=== PATIENT | female | born 1940 | race Caucasian/White ===

== ENCOUNTER 2018-06-12 09:58 | Inpatient (IN) | payer MEDICARE, OTHER ==
[~2018-06-12] VITALS: Ht 160 cm; Wt 64.6 kg
--- NOTE | ~2018-06-12 | D ---
[facility] [address] [place] [address] DISCHARGE SUMMARY Name: ARIKRAPHAEL Eddi Room: [address] IN M.R.#: [id number] Admission: 06/12/18 Attend Phys: Lou Hodges DO Discharge: 06/25/18 Date of : 44 Report #: [id number] THIS REPORT FOR: //name// CC: Pablito Hodges DISCHARGE DIAGNOSES: Right thalamic cerebrovascular accident. Discharged to home with home health PT, OT and nursing. She will follow with her neurologist within 2-4 weeks and her primary care physician within 1 week. Notifications for physician were given. She will maintain a regular diet as previously stated. Fall precautions and supervision. DISCHARGE PHYSICAL EXAMINATION: GENERAL: Alert, oriented, in no apparent distress. VITAL SIGNS: Reviewed and are stable. HEENT: Head atraumatic, normocephalic. Pupils equal, round, reactive. ABDOMEN: Soft, nontender, nondistended. NEUROLOGIC: Cranial nerves 2 through 12 are grossly intact. By: [id number] Hodges DO /nt
[2018-06-12] MEDS ORDERED: ASPIR 8181 MG PO (14:05)
[2018-06-12] MEDS ORDERED: VITAMINC500 PO (14:05)
[2018-06-12] MEDS ORDERED: TUMS PO (14:06)
[2018-06-12 16:36] VITALS: BP 148/58
[2018-06-12] MEDS ORDERED: ESTRACE1 TUBE VAG (18:36)
[2018-06-12] MEDS ORDERED: EYE DROP15 ML OPHTHALMIC (18:37)
[2018-06-12] MEDS ORDERED: FLUOCINOLON118.28 ML OTIC (18:39)
[2018-06-12] MEDS ORDERED: UNICOMPLEX M TA1 TA1 PO (18:39)
[2018-06-12] MEDS ORDERED: PROBIOTIC1 EAC1 PO (18:40)
[2018-06-12] MEDS ORDERED: OMEGA-31000 M1 PO (18:40)
[2018-06-12] MEDS ORDERED: VITAMIN B-1100 M1 PO (18:41)
--- NOTE | 2018-06-12 18:42 | NUR ---
PATIENT ADMITTED TO UNIT FROM [facility] WITH CVA, LEFT SIDE WEAKNESS, REPORT RECIEVED FROM RUSTY, PATIENT ARRIVED PER W/C VAN, ADMISSION VITALS TAKEN, PATIENT UP WITH ASSIST OF ONE WITH GAIT BELT AND WALKER, NO COMPLAINTS OF PAIN AT THIS POINT BUT DOES HAVE OSTEOARTHRITIS WITH CHRONIC PAIN, ADMISSION ASSESSMENT COMPLETED, ORIENTED TO ROOM AND UNIT, ALL QUESTIONS ANSWERED. CALL LIGHT IN REACH, AND CHAIR ALARM IN PLACE.
[2018-06-12 20:00] VITALS: BP 104/65
[2018-06-13 04:57] LABS: HEMATOCRIT 43.2 % (37.0-47.0); HEMOGLOBIN 14.5 gm/dL (12.0-15.0); MCHC 33.6 g/dL (28.0-37.0); MCV 92.2 fL (80.0-100.0); MPV 8.7 fl. (7.2-11.1); RBC 4.68 mil/uL (4.20-5.00); RDW-CV 13.1 % (10.5-14.5)
--- NOTE | 2018-06-13 05:05 | NUR ---
ASSUMED CARE AT 1929. PATIENT IN RECLINER UNTIL AROUND 2129. S/P CVA WITH LT SIDED WEAKENESS. UP TO VOID PER TOILET, DOES OWN HYGIENE AND CLOTHING ADJUSTMENT. TURNS SELF IN BED EASILY. DID OWN HS CARES. TAKES PILLS WHOLE WITH WATER WITHOUT DIFF. STATES THAT SHE DOES NOT WANT ANY HOSPITAL PROVIDED VAGINAL ESTROGEN CREAM BECAUSE SHE HAS HER OWN AT HOME THAT IS SPECIALLY PREPARED FOR HER. SHE STATES THAT SHE CANNOT USE ANY EYE GTTS THAT HAVE ANY PRESERVATIVES IN THEM, AND THAT THE EAR DROPS ARE NO LONGER NEEDED BECAUSE HER "ECZEMA" HAS CLEARED UP. NO C/O PAIN. HOURLY ROUNDS CONTINUE. BED ALARM ON. CALL LITE IN REACH.
[2018-06-13 05:08] LABS: CALCIUM 9.2 mg/dL (8.5-10.1); CREATININE 0.6 mg/dL (0.6-1.3)
[2018-06-13 08:00] VITALS: BP 148/64
--- NOTE | 2018-06-13 17:50 | NUR ---
SHIFT NOTE - PT DIZZY AT TIMES WITH WALKING. GAIT BELT AND WALKER USED. PT ABLE TO WALK ABOUT 75 FEET. PT USES DETRACTION TO HELP WITH DIZZINESS. PT HAD MULTIPLE FAMILY MEMBERS THIS SHIFT.
[2018-06-13 20:00] VITALS: BP 132/54
--- NOTE | 2018-06-14 05:05 | NUR ---
ASSUMED CARES AT 1920. ALERT AND ORIENTED. PLEASANT. SAYS THAT DOES HAVE DIZZINESS WHEN STANDING UP BUT THEN GOES AWAY. TAKES PILLS WHOLE WITHOUT ISSUES. MIN ASSIST WITH GAIT BELT AND WALKER. UP TO BATHROOM. DOES OWN CARES. SLEPT WELL WITHOUT ANY COMPLAINTS. USING CALL LIGHT APPROPRIATELY. BED ALARM ON.
[2018-06-14 08:00] VITALS: BP 120/90
--- NOTE | 2018-06-14 17:24 | NUR ---
SHIFT NOTE - PT WALKED TO DINING [place] X 2 TODAY FOR LUNCH AND DINNER. PT ALSO WALKED ~160 FEET WITH WALKER AND GAIT BELT. TOLERATED WELL. STATES SHE FEELS LIKE HER LEGS ARE GETTING STRONGER. PT HAD LARGE, FORMED STOOL THIS AM. PT HAS BEEN SITTING UP IN WHEELCHAIR FOR MOST OF SHIFT. FAMILY AT BEDSIDE FOR MOST OF SHIFT. WILL CONTINUE TO MONITOR.
[2018-06-14 19:52] VITALS: BP 137/50
--- NOTE | 2018-06-15 01:11 | NUR ---
ASSUMED CARE @ 1937-06/14-FRIDAY.WASHING HANDS IN SINK -SITTING ON A W/C.PROPELS W/C IND IN ROOM.WEARS JESSICA.HEARING AIDS.BED ALARM PUT ON @ 2126. 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
--- NOTE | 2018-06-15 05:18 | NUR ---
SLEPT GOOD ALL NIGHT & SLEEPING SINCE 2126.REFUSED HS SNACK.BRP PER W/C X2 DURING NIGHT.NO EPISODE OF DIZZINESS DURING NIGHT.SPEECH-MILD SLURRING NOTED.
[2018-06-15 08:46] VITALS: BP 134/43
--- NOTE | 2018-06-15 11:42 | NUR ---
Nutrition: Pt admitted to Rehab s/p CVA. H/o OA, osteoporosis, MATCH-E-BE-NASH-SHE-WISH BAND. RX: MVI, l. acidophilus, fish oil. Heart Healthy diet ordered. +BM. No albumin recorded. POC is pending. Appears nutritionally stable at this time. Will follow weekly.
[2018-06-15 16:49] LABS: ALBUMIN 3.9 g/dL (3.4-5.0); CALCIUM 9.2 mg/dL (8.5-10.1); CREATININE 0.7 mg/dL (0.6-1.3); POTASSIUM 4.2 mmol/L (3.5-5.1); TOTAL BILIRUBIN 0.3 mg/dL (<0.1-1.0); TOTAL PROTEIN 7.7 g/dL (6.4-8.2)
--- NOTE | 2018-06-15 17:46 | NUR ---
ASSUMED CARE OF PATIENT AFTER MORNING REPORT. ALERT AND ORIENTED X4. ASSESSMENT COMPLETED AND CHARTED. VSS ON ROOM AIR. NO COMPLAINTS OF PAIN, NAUSEA, OR SOA. PATIENT WORKING VERY WELL WITH THERAPIES TODAY AND CALLING OUT APPROPRIATELY FOR ASSISTANCE. PATIENT IS UP STAND BY ASSIST AND AMBULATES STEADILY WITH WALKER AND GAIT BELT. PATIENT WENT TO THE DINING ROOM FOR ALL MEALS. HOURLY ROUNDS MAINTAINED, CALL LIGHT WITHIN REACH, NURSING WILL CONTINUE TO MONITOR.
[2018-06-15 20:00] VITALS: BP 120/62
--- NOTE | 2018-06-16 05:46 | NUR ---
ASSUMED CARES AT 1920. ALERT AND ORIENTED. PLEASANT. DENIED ANY PAIN. SAYS THAT ONLY HAS DIZZINESS IF UP WALKING. LIKES TO USE W/C TO GET AROUND IN RM. MIN ASSIST WITH GAIT BELT AND W/C. UP TO BATHROOM. DOES OWN CARES. SLEPT VERY WELL. NO ISSUES. CALL LIGHT IN REACH AND BED ALARM ON.
[2018-06-16 10:15] VITALS: BP 121/71
--- NOTE | 2018-06-16 13:35 | NUR ---
SW met with pt to complete initial assessment, introduce self, and SW role. Pt alert, oriented, pleasant. Pt lives at home with her and also has a supportive family. Pt has RWs, canes, walking stick and pt/pt planning on installing grab bars for the shower. Pt does not have any history of HH or SNF. Pt is [facility]. Pt is current with PCP Dr Rodriguez. SW discussed team conference tomorrow and also discussed informing and updating pt family of choice and pt said possibly her to be called after the meeting. Pt did not have any questions or concerns at this time. SW to continue to follow to assist with safe dc planning.
--- NOTE | 2018-06-16 16:27 | NUR ---
PT IS ALERT AND ORIENTED X 4. DENIES PAIN. UP WITH SBA X 1. USES WHEELCHAIR FOR PRIMARY LOCOMOTION. USES A WALKER AND GAIT BELT FOR AMBULATION. HARD OF HEARING-WEARS HEARING AIDES BILAT. VS STABLE. PARTICIPATED IN THERAPIES DURING SHIFT. @ 1130, NOTIFIED BY THERAPIST OF EPISODE OF FACIAL NUMBNESS WHILE IN THERAPY GYM. DR. OCHOA NOTIFIED. PT DENIED NUMBNESS UPON ASSESSMENT. HOURLY ROUNDS MAINTAINED. WILL USE CALL LIGHT FOR ASSISTANCE. CALL LIGHT WITHIN REACH. NURSING WILL CONTINUE TO MONITOR.
[2018-06-16 20:00] VITALS: BP 140/49
--- NOTE | 2018-06-17 05:03 | NUR ---
ASSUMED PT CARE AT 1930. PT ALERT AND ORIENTED, POLITE AND COOPERATIVE WITH CARES. PT IS [place], WEARS BILATERAL HEARING AIDES. DENIES PAIN. PREFERS TO USE W/C TO GET AROUND IN ROOM. MIN ASSIST WITH GAITBELT AND W/C TO BATHROOM TO VOID X2 OVERNIGHT. PT DOES OWN CARES. SLEPT WELL, NO COMPLAINTS, OR S/S PAIN OR DISTRESS. BED ALARM ON FOR SAFETY. USES CALL LIGHT APPROPRIATELY. CALL LIGHT AND FREQUENTLY USED ITEMS WITHIN REACH. HOURLY ROUNDING IN PROGRESS, WILL CONTINUE TO MONITOR.
[2018-06-17 08:04] VITALS: BP 136/54
--- NOTE | 2018-06-17 14:37 | NUR ---
AM ASSESSMENT AND VITAL SIGNS COMPLETED DOCUMENTED. PT HAS BEEN PLEASANT AND COOPERATIVE, WORKS WITH ALL THERAPIES. BILATERAL HEARING AIDES AND GLASSES WORN THIS SHIFT. PT REQUESTED TO WALK MORE SO I HAVE ENCOURAGED HER TO USE THE WALKER MORE AND WHEELCHAIR LESS. PT C/O RIB PAIN THIS AM AND NOW HAS PRN ICY HOT. FALL PRECAUTIONS AND HOURLY ROUNDING CONTINUE.
--- NOTE | 2018-06-17 15:00 | NUR ---
TAMMY and Dr Hodges met with pt and reviewed team conference summary and plan for pt to remain on rehab unit one more week with possible dc next and pt to be mod I next week. Pt understanding and did not have any questions at this time. SW to continue to follow to assist with safe dc planning.
[2018-06-17 19:56] VITALS: BP 137/45
--- NOTE | 2018-06-18 05:08 | NUR ---
ASSUMED PT CARE AT 1930. PT ALERT AND ORIENTED, POLITE AND COOPERATIVE WITH CARES. PT IS [place], WEARS BILATERAL HEARING AIDES. DENIES PAIN. UP WITH MIN ASSIST, GAIT BELT AND WALKER TO BATHROOM TO VOID OVERNIGHT. PT DOES OWN CARES. SLEPT WELL. BED ALARM ON FOR SAFETY. USES CALL LIGHT APPROPRIATELY. CALL LIGHT AND FREQUENTLY USED ITEMS WITHIN REACH. HOURLY ROUNDING IN PROGRESS, WILL CONTINUE TO MONITOR.
[2018-06-18 08:00] VITALS: BP 106/45
[2018-06-18 08:51] VITALS: BP 106/45
[2018-06-18 19:43] VITALS: BP 156/48
--- NOTE | 2018-06-19 05:21 | NUR ---
ASSUMED PT CARE AT 1930. PT ALERT AND ORIENTED, POLITE AND COOPERATIVE WITH CARES. PT IS [place], WEARS BILATERAL HEARING AIDES. DENIES PAIN. UP WITH MIN ASSIST, GAIT BELT AND WALKER TO VOID OVERNIGHT. PT DOES OWN CARES. SLEPT WELL. BED ALARM ON FOR SAFETY. USES CALL LIGHT APPROPRIATELY. CALL LIGHT AND FREQUENTLY USED ITEMS WITHIN REACH. HOURLY ROUNDING IN PROGRESS, WILL CONTINUE TO MONITOR.
[2018-06-19 07:51] VITALS: BP 150/60
[2018-06-19 20:47] VITALS: BP 132/47
--- NOTE | 2018-06-20 04:47 | NUR ---
PATIENT REMAINS ALERT AND ORIENTED. VERY [place]. WEARS HEARING AIDS. UP TO VOID X3 THIS SHIFT. SLEPT INTERMITTENTLY. CURRENTLY UP IN WHEELCHAIR WASHING UP IN SINK. TRANSFERS WITH ASSIST OF 1 AND GAITBELT. REFUSED SCD'S. CALL LIGHT WITHIN REACH. WILL CONTINUE TO MONITOR.
--- NOTE | 2018-06-20 05:48 | NUR ---
HOURLY ROUNDING COMPLETED
[2018-06-20 07:55] VITALS: BP 145/63
--- NOTE | 2018-06-20 17:46 | NUR ---
ASSUMED CARE AT 0730 PATIENT ALERT/ORIENTED, NO COMPLAINTS OF PAIN THIS SHIFT, WALKS TO DINING ROOM, HOURLY ROUNDING COMPLETED, PARTICIPATED IN ALL THERAPIES, BED/CHAIR ALARMS IN PLACE, CALL LIGHT IN REACH.
[2018-06-20 20:00] VITALS: BP 125/47
--- NOTE | 2018-06-21 06:28 | NUR ---
PATIENT HAS SLEPT WELL THROUGHOUT THE NIGHT WITHOUT ANY ISSUES. VSS ON RA. NO C/O PAIN. MEDICATION GIVEN ORDERED AND CHARTED. PATIENT UP WITH ASSIST X 1 WITH GAITBELT AND WALKER TO THE BATHROOM. PATIENT INSTRUCTED TO USE CALL LIGHT WHEN NEEDING ASSISTANCE. FALL PRECAUTIONS IN PLACE AND HOURLY ROUNDS MADE. WILL CONTINUE WITH PLAN OF CARE AND NURSING TO MONITOR.
[2018-06-21 08:06] VITALS: BP 115/49
--- NOTE | 2018-06-21 17:51 | NUR ---
ASSUMED CARE AT 0730 PATIENT ALERT/ORIENTED, NO COMPLAINTS OF PAIN THIS SHIFT, UP WITH STANDBY ASSIST AND WALKER/GAIT BELT, AMBULATED AROUND FLOOR X3 THIS SHIFT, TO DINING ROOM FOR MEALS, BED/CHAIR ALARMS IN PLACE, CALL LIGHT IN REACH. HOURLY ROUNDING COMPLETED. VISITED WITH FAMILY/FRIENDS THIS SHIFT.
[2018-06-21 20:03] VITALS: BP 135/46
[2018-06-21 21:02] VITALS: BP 135/46
--- NOTE | 2018-06-22 05:18 | NUR ---
ALERT AND ORIENTED X4. UP WITH STAND BY ASSIST, GAIT BELT AND WALKER. DENIES C/O PAIN OR NAUSEA. HARD OF HEARING. CALL LIGHT WITHIN REACH. PROGRESSING TOWARD DISCHARGE GOAL.
[2018-06-22 08:30] VITALS: BP 144/56
--- NOTE | 2018-06-22 14:51 | NUR ---
ASSUMED CARE AT 0730. ALERT ORIENTED PLEASANT COOPERATIVE. HX OF CVA WITHOUT RESIDUAL. TRANSFERS WITH SBA G BELT WALKER AMBULATES TO BR TO VOID ABLE TO DO HYGEINE AND CLOTHING ADJUSTMENTS. FEEDS SELF TAKES MEDS WITHOUT DIFFICULTY. USES CALL LIGHT APPROPRIATELY FOR ASSIST.PARTICIPATING IN THERAPIES. DENIES PAIN OR REQUESTS.
[2018-06-22 20:00] VITALS: BP 133/55
--- NOTE | 2018-06-23 05:43 | NUR ---
ASSUMED CARES AT 1920. ALERT AND ORIENTED. DENIED ANY PAIN. UP IN W/C. C/O GASSINESS. TUMS PRN GIVEN X 2. MIN ASSIST WITH GAIT BELT AND WALKER/WC. UP TO BATHROOM. DOES OWN CARES. SLEPT OFF AND ON. CALL LIGHT IN REACH AND BED ALARM ON.
[2018-06-23 08:00] VITALS: BP 133/65
--- NOTE | 2018-06-23 13:39 | NUR ---
SW attempted to contact pt in preparation for team conference tomorrow. Pt working with ST at the time. Pt did not answer and the phone memory was full so SW was unable to leave a message. SW to continue to follow to assist with safe dc planning. Plan to reteam tomorrow with possibility of pt to dc home on 06/25.
--- NOTE | 2018-06-23 14:05 | NUR ---
ASSUMED CARE AT 0730. ALERT ORIENTED PLEASANT COOPERATIVE. HX OF CVA NO RESIDUAL. TRANSFERS WITH SBA G BELT WALKER AMBULATES TO BR ABLE TO DO HYGEINE AND CLOTHING ADJUSTMENTS. DENIES PAIN OR CONCERNS. PARTICIPATING IN THERAPIES THROUGHOUT THE DAY. USES CALL LIGHT APPROPRIATELY FOR ASSISTANCE. PROPELLS SELF IN ROOM IN W/C. FEEDS SELF AND TAKES MEDS WITHOUT DIFFICULTY.
[2018-06-23 20:42] VITALS: BP 141/48
--- NOTE | 2018-06-24 05:16 | NUR ---
ASSUMED CARES AT 1920. ALERT AND ORIENTED. PLEASANT. MOVING AROUND ROOM IN W/C. OTHERWISE SBA WITH GAIT BELT. UP TO BATHROOM. DOES OWN CARES. C/O BACK PAIN. ICY HOT APPLIED ALONG WITH HEATING PAD. PT SLEPT VERY WELL. CALL LIGHT IN REACH AND BED ALARM ON.
[2018-06-24 08:00] VITALS: BP 117/49
--- NOTE | 2018-06-24 09:11 | NUR ---
AM ASSESSMENT AND VITAL SIGNS COMPLETED DOCUMENTED. PT HAS SHOWERED, DONE AM ADL's AND PUT HER MAKE UP ON. PT SELF PROPELS IN A WHEELCHAIR WHEN IN HER ROOM BUT IS ABLE TO AMBULATE WITH STAFF PRESENT. NO C/O PAIN OR DIZZINESS THIS AM. HOURLY ROUNDING AND FALL PRECAUTIONS IN PLACE.
--- NOTE | 2018-06-24 16:56 | NUR ---
TAMMY and Dr Hodges met with pt and pt to review team conference summary and plan for pt to dc home with tomorrow with HH services to follow. Dr Hodges explained pt can be mod I in her room starting today. Pt and pt in agreement with plan. SW to continue to follow to assist with finalizing safe dc plan.
[2018-06-24 20:00] VITALS: BP 139/45
[2018-06-24 23:13] VITALS: BP 139/45
--- NOTE | 2018-06-25 05:12 | NUR ---
ASSUMED CARES AT 1920. ALERT AND ORIENTED. SAYS THAT WAS ANXIOUS EARLIER ABOUT GOING HOME BUT FEELING BETTER NOW. HEATING PAD FOR BACK. ANAMARIA IN RM. NO UNSAFE BEHAVIORS NOTED. SLEPT WELL. NO COMPLAINTS. CALL LIGHT IN REACH.
[2018-06-25 08:17] VITALS: BP 144/66
[2018-06-25 11:41] VITALS: BP 139/45
--- NOTE | 2018-06-25 11:43 | NUR ---
SW followed up with pt regarding pt dc home today. Pt to dc home with who is providing pt ride home. SW discussed HH options and SW chose [facility]. SW faxed referral and dc orders/med list to [facility] [phone] and fax [phone]. Pt has DME at home already if needed in the future. Pt did not express any dc needs at this time.
--- NOTE | 2018-06-25 15:14 | NUR ---
AM ASSESSMENT AND VITAL SIGNS COMPLETED DOCUMNETED. THERAPY SESSIONS COMPLETED AND DISCHARGE GOALS HAVE BEEN MET. DISCHARGE INSTRUCTIONS PROVIDED TO PATIENT AND HOME HEALTH WILL BE FOLLOWING AFTER DISCHARGE. PT AND HER BELONGINGS TRANSPORTED TO EXIT, DISCHARGED HOME IN STABLE CONDITION.
--- NOTE | 2018-07-08 13:57 | PLAN ---
[address] [address] REHAB UNIT PLAN OF CARE Name: RAPHAEL ELISE Room: [address] IN [facility].#: [id number] Admission: 06/12/18 Attend Phys: Lou Hodges DO Discharge: 06/25/18 Date of : 44 Report #: [id number] THIS REPORT FOR: //name// CC: Pablito Hodges DIAGNOSIS: Cerebrovascular accident with left-sided weakness, numbness, gait and stability and changes and alterations in activities of daily living. This is a 77-year-old right-hand dominant female status post cerebrovascular accident. Previous level of function was independent with activities of daily living. Current level of function is [id number] assistance of 1-2 depending on therapy, activity and time of day. She has needs in physical and occupational therapy as well as speech and language pathology. MEDICAL PROGNOSIS: Good. REHABILITATION PROGNOSIS: Good. Estimated length of stay is 14-18 days with discharge disposition to the home setting where she has supportive family and an accessible house. Physical therapy will see the patient 60-90 minutes per day, 5 days per week, working on upper and lower body strength, balance, coordination, navigation. Occupational therapy will work with the patient 60-90 minutes per day, 5 days work per week, working on upper and lower body strength, balance, coordination, navigation, bathing, dressing, and toileting. Speech language pathology will work with the patient 60-90 minutes per day, 5 days per week, working on memory, expression, social interaction, and that will be 60-90 minutes per day, 5 days per week. This is an overall plan of care, may change from time to time. We will team weekly and make changes to plan of care as needed. <ELECTRONICALLY SIGNED> By: Lou Hodges DO 07/08/18 1357 [id number] Hodges DO /nt
--- NOTE | 2018-07-08 13:57 | H ---
[address] [place] [address] HISTORY AND PHYSICAL Name: RAPHAEL ELISE Room: [address] IN M.R.#: [id number] Admission: 06/12/18 Attend Phys: Lou Hodges DO Discharge: 06/25/18 Date of : 42 Report #: [id number] THIS REPORT FOR: //name// CC: Pablito Hodges DATE OF SERVICE: 06/12/2018 HISTORY OF PRESENT ILLNESS: 77 YEAR OLD RIGHT HAND DOMINANT FEMALE ADMITTED TO INPATIENT REHABILITATION TO FACILITATE [facility] HOME STATUS POST RIGH THALAMIC CVA on 06/06/18. Residual left upper and lower extremity hemiparesis, numbness, gait instability and alterations in activities of daily living. No significant changes since preadmission screening. Previous level of function was modified independent to independent with activities of daily living. Current level of function is minimum to moderate assistance of 1-2 depending on therapy, activity and time of day. Estimated length of stay is 14-16 days depending on therapy, activity and progression. Medications have been reviewed, reconciled and are available in the MAR. Allergies: reviewed PAST MEDICAL HISTORY: aortic ectasia bronchitis anemia hgb: 15.2 asthma a-fib OA HTN Hearing loss TIA NAYAN CAD eczema GERD Medications have been reviewed and are in the MAR. SOCIAL HISTORY: No tobacco, alcohol or illicit drug use. FAMILY HISTORY: heart disease, stroke [address] [place] [address] HISTORY AND PHYSICAL Name: RAPHAEL ELISE Room: [address] IN [facility].#: [id number] Admission: 06/12/18 Attend Phys: Lou Hodges DO Discharge: 06/25/18 Date of : 44 Report #: [id number] REVIEW OF SYSTEMS: A 14-point review of systems is done and is negative except as mentioned in the HPI, specifically no fever, chest pain, shortness of breath, abdominal pain or distention. PHYSICAL EXAMINATION: GENERAL: Alert, oriented, no apparent distress. VITAL SIGNS: Reviewed and are stable. HEAD: Atraumatic, normocephalic. EYES: Pupils equal, round, reactive. ABDOMEN: Soft, nontender, nondistended. NEUROLOGIC: Cranial nerves 2 through 12 are grossly intact with no focal neuro deficits. SKIN: Warm and dry. MUSCULOSKELETAL: No clubbing, cyanosis or edema. ASSESSMENT: 1. Right thalamic CVA 2. Residual L hemiparesis 3. Left sided numbness 4. Impaired gait 5. Alterations in ADLs PLAN: 1. Admission to inpatient rehabilitation to facilitate safe discharge home. 2. PT, OT, speech, language, case management, nursing and HIMS to make evaluation and recommendations. 3. Plan of care is pending and we will team her weekly on Wednesdays. 4. Modifications to plan of care as needed. <ELECTRONICALLY SIGNED> By: Lou Hodges DO 07/08/18 1357 [id number] Hodges DO /milagro
== END 2018-06-25 15:25 | disposition home health service (06) | DRG 65 ==
LOC: M.REH 09:58
PROVIDERS: Internal Medicine; ADMIT Physical Medicine & Rehabilitation
DX: I63.89 Other cerebral infarction (principal); G81.94 Hemiplegia, unspecified affecting left nondominant side; G89.29 Other chronic pain; M54.9 Dorsalgia, unspecified; M19.90 Unspecified osteoarthritis, unspecified site; I48.91 Unspecified atrial fibrillation; R20.0 Anesthesia of skin; M81.0 Age-related osteoporosis without current pathological fracture; J45.909 Unspecified asthma, uncomplicated; H91.93 Unspecified hearing loss, bilateral; I25.10 Atherosclerotic heart disease of native coronary artery without angina pectoris; K21.9 Gastro-esophageal reflux disease without esophagitis; R26.9 Unspecified abnormalities of gait and mobility; G31.84 Mild cognitive impairment of uncertain or unknown etiology; Z88.8 Allergy status to other drugs, medicaments and biological substances; Z88.1 Allergy status to other antibiotic agents; Z88.2 Allergy status to sulfonamides; Z88.6 Allergy status to analgesic agent; Z91.040 Latex allergy status; Z86.73 Personal history of transient ischemic attack (TIA), and cerebral infarction without residual deficits; Z90.710 Acquired absence of both cervix and uterus; Z82.49 Family history of ischemic heart disease and other diseases of the circulatory system; Z82.3 Family history of stroke; Z79.899 Other long term (current) drug therapy; Z79.82 Long term (current) use of aspirin